=== PATIENT | male | born 1995 | race Caucasian/White ===

== ENCOUNTER 2024-05-22 16:15 | Emergency (ER) | payer BC ==
[~2024-05-22] VITALS: Ht 182.9 cm; Wt 93.0 kg
[2024-05-22 17:02] LABS: BASOPHILS % (AUTO) 0.2 % (0.0-2.0); EOSINOPHILS # (AUTO) 0.1 K/uL (0.0-0.7); HEMATOCRIT 48 % (39-51); HEMOGLOBIN 16.4 g/dL (13.5-17.5); LYMPHOCYTES # (AUTO) 1.1 K/uL (0.8-4.8); LYMPHOCYTES % (AUTO) 8.6 % (20.0-44.0); MEAN CORPUSCULAR HEMOGLOBIN 30 PG (26.0-33.0); MEAN CORPUSCULAR HGB CONC 35 g/dl (31.0-36.0); MEAN CORPUSCULAR VOLUME 88 fL (80-96); MONOCYTES # (AUTO) 0.9 K/uL (0.1-1.30); MONOCYTES % (AUTO) 7.1 % (2.0-12.0); NEUTROPHILS # (AUTO) 10.4 K/uL (1.8-8.9); NEUTROPHILS % (AUTO) 83.1 % (43.0-81.0); PLATELET COUNT (AUTO) 275 K/uL (150-450); RED BLOOD CELL COUNT(AUTO) 5.44 MIL/uL (4.5-6.0); RED CELL DISTRIBUTION WIDTH 12.6 % (11.5-15.0); WHITE BLOOD COUNT (AUTO) 12.6 K/uL (4.3-11.0)
[2024-05-22 17:09] LABS: CALCIUM, SERUM 9.3 mg/dL (8.5-10.1); POTASSIUM 3.9 mmol/L (3.5-5.1)
[2024-05-22 17:13] LABS: APPEARANCE,URINE Clear (CLEAR); BILIRUBIN,URINE Negative (NEGATIVE); BLOOD, URINE Negative Ery/uL (NEGATIVE); COLOR,URINE YELLOW (YELLOW); KETONES,URINE Negative (NEGATIVE); LEUKOCYTE ESTERASE ,URINE Negative (NEGATIVE); NITRITE, URINE Negative (NEGATIVE); PH,URINE 7.5 (5.0-8.0); PROTEIN,URINE Negative (NEGATIVE); UGLUCOSE Negative (NEGATIVE); UROBILINOGEN,URINE 0.2 EU/dL (0.2)
[2024-05-22 17:16] LABS: BILIRUBIN,DIRECT 0.2 mg/dL (0.0-0.2); BILIRUBIN,TOTAL 1.5 mg/dL (0.2-1.0); TOTAL PROTEIN, SERUM 7.5 g/dL (6.4-8.2)
[2024-05-22] MEDS ORDERED: FAMOTIDINE (20 MG) 20 MG TABLET ONE (17:16)
[2024-05-22] MEDS ORDERED: MAG HYDROX/AL HYDROX/SIMETH 30 ML UDC ONE (17:16)
[2024-05-22] MEDS ORDERED: ACETAMINOPHEN ES 500 MG TABLET ONE (17:16)
[2024-05-22] MEDS: MAG HYDROX/AL HYDROX/SIMETH 30 ML UDC PO ONE (17:28)
[2024-05-22] MEDS: ACETAMINOPHEN ES 500 MG TABLET PO ONE (17:28)
[2024-05-22] MEDS: FAMOTIDINE (20 MG) 20 MG TABLET PO ONE (17:29)
[2024-05-22] MEDS ORDERED: FAMO-131 PO (18:49)
[2024-05-22] MEDS ORDERED: ONDA4TAB5 PO (18:49)
[2024-05-22] MEDS ORDERED: ACET325C7 PO (18:49)
[2024-05-22] MEDS ORDERED: IBUP-1953 PO (18:49)
[2024-05-22] MEDS ORDERED: MAG355OR18 PO (18:49)
[2024-05-22 19:32] VITALS: BP 123/90; TEMP 98.1; O2SAT 100
== END 2024-05-22 19:33 | disposition home or self-care (01) ==
LOC: ER 16:21
DX: K76.0 Fatty (change of) liver, not elsewhere classified (principal); R11.0 Nausea; R16.2 Hepatomegaly with splenomegaly, not elsewhere classified; I10 Essential (primary) hypertension; Z86.79 Personal history of other diseases of the circulatory system
CPT/HCPCS: 36415; 76700-TC; 80048-TC; 80076-TC; 83690-TC; 85025-TC